=== PATIENT | female | born 1965 | race Two or more races ===

== ENCOUNTER → 2016-09-04 | Outpatient (CLI) | payer OTHER ==
--- NOTE | 2016-09-05 11:15 | RAD ---
DATE: 09/04/16 EXAM: DIGITAL SCREEN BILAT W/CAD HISTORY: Routine screening COMPARISON: 06/18/14 This study was interpreted with the benefit of Computerized Aided Detection (CAD ). TECHNIQUE: CC and MLO views of both breasts are obtained. FINDINGS: The breast tissue density is [C, heterogeneously dense breast parenchyma ] . This reduces the sensitivity of mammograms. There are no dominant suspicious masses, suspicious microcalcifications or evidence of architectural distortion. Skin and nipples are intact IMPRESSION: Negative exam BI-RADS CATEGORY: 1 NEGATIVE RECOMMENDED FOLLOW-UP: One year PQRS compliance statement: Patient information was entered into a reminder system with a target due date for the next mammogram. Mammography is a sensitive method for finding small breast cancers, but it does not detect them all and is not a substitute for careful clinical examination. A negative mammogram does not negate a clinically suspicious finding and should not result in delay in biopsying a clinically suspicious abnormality. "Our facility is accredited by the [employer] Mammography [employer]." SARINA
== END | disposition home or self-care (01) ==
LOC: MAMMO 08:35
PROVIDERS: ATTEND Registered Nurse Emergency
DX: Z12.31 Encounter for screening mammogram for malignant neoplasm of breast (principal)
CPT/HCPCS: G0202; 77067